=== PATIENT | female | born 1945 | race Caucasian/White ===

== ENCOUNTER 2017-01-19 01:31 | Emergency (ER) | payer OTHER, MEDICARE ==
[~2017-01-19] VITALS: Ht 154.9 cm; Wt 75.5 kg
[2017-01-19 02:02] LABS: HEMATOCRIT 38.3 % (36.0-46.0); MCH 27.8 PG (29.0-34.0); MCHC 32.6 G/DL (30.0-36.0); MCV 85.3 FL (83-99); PLATELET COUNT 241 K/uL (156-360); RBC DIS.WIDTH-CV 13.2 % (11.8-14.6); RBC DIS.WIDTH-SD 41.5 % (39-53); RED BLOOD COUNT 4.49 M/uL (3.80-5.20); WHITE BLOOD COUNT 13.5 K/uL (4.1-10.2)
[2017-01-19 02:13] LABS: CHLORIDE 103 mEq/L (99-109); POTASSIUM 3.8 mEq/L (3.7-5.4); SODIUM 138 mEq/L (136-147)
[2017-01-19 02:15] LABS: GLUCOSE 134 mg/dL (70-99)
[2017-01-19 02:16] LABS: ANION GAP 11 MEQ/L (2-14)
[2017-01-19 02:19] LABS: GFR ESTIMATE (CALCULATED) > 59 mL/min/
[2017-01-19 02:20] LABS: UREA NITROGEN (BUN) 13 mg/dL (9-23)
[2017-01-19 03:36] LABS: TOTAL BILIRUBIN 0.4 mg/dL (0.0-1.0)
[2017-01-19 03:37] LABS: ALKALINE PHOSPHATASE 49 IU/L (3-129)
[2017-01-19 03:41] LABS: DIRECT BILIRUBIN 0.2 mg/dL (0.0-0.3); LIPASE 57 U/L (1.0-51.0)
[2017-01-19 03:44] LABS: TROP-I INTERPRETATION NEGATIVE; TROPONIN-I 0.02 ng/mL (0.0-0.30)
[2017-01-19 05:14] LABS: ADD MIUA? YES; BILIRUBIN NEGATIVE; BLOOD NEGATIVE; COLOR YELLOW ((YELLOW)); GLUCOSE (STRIP) NEGATIVE; KETONES NEGATIVE; LEUKOCYTES MODERATE; NITRITE NEGATIVE; PROTEIN (STRIP) 30; SPECIFIC GRAVITY 1.021 (1.000-1.030); UROBILINOGEN 0.2 MG/DL (0.2-1.0)
[2017-01-19 05:27] LABS: BACTERIA NONE SEEN /HPF; EPITHELIAL CELLS RARE /HPF; MUCUS 1+ /LPF; RED BLOOD CELLS 0-5 /HPF (0-5); UCUL ADDED? YES
[2017-01-19] MEDS ORDERED: ANTIVERT25 MG PO (05:46)
[2017-01-19] MEDS ORDERED: KEFLEX500 MG PO (05:46)
[2017-01-19 06:12] VITALS: BP 137/68
== END 2017-01-19 06:14 | disposition home or self-care (01) ==
LOC: EME 01:31
PROVIDERS: Emergency Medicine
DX: N30.00 Acute cystitis without hematuria (principal); R42 Dizziness and giddiness; I10 Essential (primary) hypertension; R11.2 Nausea with vomiting, unspecified; Z87.891 Personal history of nicotine dependence
CPT/HCPCS: 70450; 71020; 80048; 80076; 81003; 83690; 84484; 85027; 87077; 87086; 87186; 93005; 99281; 99285; J2405; J3360; J7030